=== PATIENT | female | born 1995 | race Caucasian/White ===

== ENCOUNTER 2019-05-17 09:14 | Emergency (ER) | payer BC ==
[2019-05-17 09:24] VITALS: BP 136/73
--- NOTE | 2019-05-17 09:36 | ER Document Report ---
HPI - HPI Time Seen by Provider: 05/17/19 09:32 Pain Level: Denies Notes: Patient is a 23-year-old female no significant past medical history presents complaining of noticing drainage and crusting to her right eye early this morning. Patient states that she cleaned that off and back to bed and noticed the left eye was starting to act up as well. Patient states that she is exposed to an illness with her daughter in the household. She does not wear contact lenses. She is otherwise able to eat and drink without difficulty. She is urinating normally. Denies drug allergies. No other concerns or complaints. Denies any headache, fever, neck pain, changes in vi hugh/speech/mentation/hearing, URI, sore throat, chest pain, palpitations, syncope, cough, shortness of breath, wheeze, dyspnea, abdominal pain, nausea/vomiting/diarrhea, urinary retention, dysuria, hematuria, or rash. - ROS Systems Reviewed and Negative: Yes All other systems reviewed and negative Past Medical History - Social History Smoking Status: Former Smoker Family History: Reviewed & Not Pertinent Patient has suicidal ideation: No Patient has homicidal ideation: No Past Surgical History: Reports: Hx Section - x1, Hx Tonsillectomy Vertical Provider Document - CONSTITUTIONAL Agree With Documented VS: Yes Notes: PHYSICAL EXAMINATION: GENERAL: Well-appearing, well-nourished and in no acute distress. A&Ox4 HEAD: Atraumatic, normocephalic. EYES: Pupils equal round and reactive to light, extraocular movements intact, sclera anicteric, conjunctiva minimal injection with scant crusting/discharge noted b/l. Non-tender to palp of the globe and eye itself. No surrounding erythema or swelling noted. Visual acuity 20/20 b/l and in each eye (performed by myself at bedside with my own eye chart). ENT: Nares patent and without discharge. oropharynx clear without exudates. No tonsilar hypertrophy or erythema. Moist mucous membranes. No sinus tenderness. Uvula midline. No palatine shift. No airway compromise. No drooling or hoarseness. NECK: Normal range of motion, supple without lymphadenopathy. No rigidity/meningismus. LUNGS: Breath sounds clear to auscultation bilaterally and equal. No wheezes rales or rhonchi. HEART: Regular rate and rhythm without murmurs, rubs, gallops. Extremities: No cyanosis, clubbing, or edema b/l. Peripheral pulses 2+. Capillary refill less than 3 seconds. NEUROLOGICAL: Cranial nerves grossly intact. Normal speech, normal gait. PSYCH: Normal mood, normal affect. SKIN: Warm, Dry, normal turgor, no rashes or lesions noted. Course - Re-evaluation Re-evalutation: 05/17/19 09:38 Patient is an afebrile, well-hydrated, 23-year-old female who presents to the emergency department with conjunctivitis to her left eye > Rt. Vitals are acceptable without significant tachycardia, tachypnea, or hypoxia. PE is otherwise unremarkable. Patient is nontoxic-appearing and is able to tolerate p.o. without difficulty. No labs or imaging warranted. Low suspicion for any retained corneal or lid foreign body, deep space infection including orbital cellulitis/abscess, acute glaucoma, penetrating globe injury, retinal detachment, meningitis, sepsis, fracture, compartment syndrome. I will send home with a prescription for Polytrim to use as directed. Conservative measures otherwise for symptoms with proper handwashing. Recheck with your PCM in 3-5 days. Consider follow-up with ophthalmology. Return to the ED with any worsening/concerning symptoms otherwise as reviewed in discharge. Patient is in agreement. - Vital Signs Vital signs: Temp Pulse Resp BP Pulse Ox 98.5 F 71 18 136/73 H 100 05/17/19 09:22 05/17/19 09:22 05/17/19 09:22 05/17/19 09:22 05/17/19 09:22 Discharge - Discharge Clinical Impression: Bilateral conjunctivitis Qualifiers: Conjunctivitis type: unspecified Qualified Code(s): H10.9 - Unspecified conjunctivitis Condition: Stable Disposition: HOME, SELF-CARE Instructions: Conjunctivitis ([facility]) Additional Instructions: Keep eyes clean Avoid scratching/touching eyes Wash hands regularly Use eye drops as directed Maintain adequate fluid intake tylenol/ibuprofen as needed over the counter cold medication as needed for symptoms F/u: with your PCM in 3-5 days for a recheck Consider consult with Ophthalmology for ongoing/worsening symptoms Return to the ED with any worsening symptoms and/or development of fever, headache, changes in vision, eye pain, worsening eye redness, redness around the eyes, purulent discharge, sore throat, facial swelling, neck pain/stiffness, chest pain, palpitations, syncope, shortness of breath, trouble breathing, abdominal pain, n/v/d, blood in stool/urine, dysuria, or other worsening symptoms that are concerning to you. Prescriptions: Polymyxin B Sulf/Trimethoprim [Polytrim Eye Drops] 1 drop OD Q3H #10 ml Forms: Elevated Blood Pressure Referrals: CAPO MOORE MD [ACTIVE STAFF] - Follow up as needed
== END 2019-05-17 09:36 | disposition home or self-care (01) ==
LOC: ER 09:14
DX: H10.9 Unspecified conjunctivitis (principal); H57.11 Ocular pain, right eye; Z87.891 Personal history of nicotine dependence
CPT/HCPCS: 99282

== ENCOUNTER 2019-05-18 23:49 | Emergency (ER) | payer BC ==
[2019-05-19 01:18] LABS: APPEARANCE,URINE SLIGHTLY-CLOUDY; BILIRUBIN,URINE NEGATIVE (NEGATIVE); COLOR,URINE YELLOW; GLUCOSE, URINE NEGATIVE (NEGATIVE); KETONES,URINE NEGATIVE (NEGATIVE); LEUKOCYTE ESTERASE,URINE TRACE (NEGATIVE); NITRITE,URINE NEGATIVE (NEGATIVE); PROTEIN,URINE NEGATIVE (NEGATIVE); URINE SPECIFIC GRAVITY 1.014; UROBILINOGEN,URINE NEGATIVE mg/dL (<2.0)
[2019-05-19 02:29] LABS: ABSOLUTE EOSINOPHILS # (AUTO) 0.1 10^3/uL (0.0-0.6); ABSOLUTE LYMPHOCYTES (AUTO) 2.2 10^3/uL (0.5-4.7); ABSOLUTE MONOCYTES (AUTO) 0.5 10^3/uL (0.1-1.4); ABSOLUTE NEUT (AUTO) 6.8 10^3/uL (1.7-8.2); BASOPHILS % (AUTO) 0.4 % (0-2); EOSINOPHILS % (AUTO) 0.8 % (0-6); HEMATOCRIT 38.1 % (36.0-47.0); HEMOGLOBIN 13.2 g/dL (12.0-15.5); LYMPHOCYTES % (AUTO) 22.9 % (13-45); MEAN CORPUSCULAR HEMOGLOBIN 31.1 pg (27.0-33.4); MEAN CORPUSCULAR HGB CONC 34.5 g/dL (32.0-36.0); MEAN CORPUSCULAR VOLUME 90 fl (80-97); PLATELET COUNT 201 10^3/uL (150-450); RED BLOOD COUNT 4.23 10^6/uL (3.72-5.28); RED CELL DISTRIBUTION WIDTH 12.5 % (11.5-14.0); SEGMENTED NEUTROPHILS % (AUTO) 70.9 % (42-78); TOTAL CELLS COUNTED % (AUTO) 100 %; WHITE BLOOD COUNT 9.6 10^3/uL (4.0-10.5)
--- NOTE | 2019-05-19 03:06 | ER Document Report ---
ED GI/ - General Chief Complaint: OB Problem (<20wks) Stated Complaint: VAGINAL BLEEDING Time Seen by Provider: 05/19/19 02:21 Notes: Patient is a 23-year-old female that comes to the emergency department for chief complaint of abdominal cramping for the past 3 days and today she began spotting intermittently. She is G4, P1 at 10 weeks gestation by first trimester ultrasound. She denies any current complaints, she denies vomiting, fever, trauma, dysuria, vaginal discharge otherwise. She has had a and tonsillectomy, takes vitamins but no daily medications, denies smoking, alcohol, recreational drugs. TRAVEL OUTSIDE OF THE [place] IN LAST 30 DAYS: No - Related Data Allergies/Adverse Reactions: No Known Allergies Allergy (Unverified 05/17/19 09:24) Home Medications: vitamins Past Medical History - General Information source: Patient Last Menstrual Period: 03/01/2019 - Social History Smoking Status: Never Smoker Frequency of alcohol use: None Drug Abuse: None Lives with: Family Family History: Reviewed & Not Pertinent Patient has suicidal ideation: No Patient has homicidal ideation: No Past Surgical History: Reports: Hx Section - x1, Hx Tonsillectomy - Immunizations Immunizations up to date: Yes Hx Diphtheria, Pertussis, Tetanus Vaccination: Yes Review of Systems - Review of Systems Constitutional: No symptoms reported EENT: No symptoms reported Cardiovascular: No symptoms reported Respiratory: No symptoms reported Gastrointestinal: See HPI Genitourinary: No symptoms reported Female Genitourinary: See HPI Musculoskeletal: No symptoms reported Skin: No symptoms reported Hematologic/Lymphatic: No symptoms reported Neurological/Psychological: No symptoms reported Physical Exam - Vital signs Vitals: Temp Pulse Resp BP Pulse Ox 98.5 F 83 16 112/71 100 05/18/19 23:54 05/18/19 23:54 05/18/19 23:54 05/18/19 23:54 05/18/19 23:54 - Notes Notes: GENERAL: Alert, interacts well. No acute distress. HEAD: Normocephalic, atraumatic. EYES: Pupils equal, round, and reactive to light. Extraocular movements intact. ENT: Oral mucosa moist, tongue midline. Oropharynx unremarkable. Airway patent. LUNGS: Clear to auscultation bilaterally, no wheezes, rales, or rhonchi. No respiratory distress. HEART: Regular rate and rhythm. No murmur ABDOMEN: Soft, non-tender. Non-distended. EXTREMITIES: Moves all 4 extremities spontaneously. No edema, normal radial and dorsalis pedis pulses bilaterally. No cyanosis. BACK: no cervical, thoracic, lumbar midline tenderness. No saddle anesthesia, normal distal neurovascular exam. Moves all extremities in full range of motion. NEUROLOGICAL: Alert and oriented x3. Normal speech. Cranial nerves II through XII grossly intact. PSYCH: Normal affect, normal mood. SKIN: Warm, dry, normal turgor. No rashes or lesions noted. Course - Re-evaluation Re-evalutation: Patient has a nontender abdomen on exam. Vital signs unremarkable. She is alert and well-appearing. CBC unremarkable, hCG appropriately elevated, urinalysis unremarkable. RhoGam is not indicated. Ultrasound showing intrauterine with detected heartbeat, also shows small subchorionic hemorrhage. No other concerning findings. I suspect the subchorionic hemorrhage is the cause of patient's symptoms. Discussed results and findings with patient in detail. Provided with work release, nausea medication on request, discussed follow-up and return precautions in detail. She states understanding and agreement. Stable at time of discharge. - Vital Signs Vital signs: Temp Pulse Resp BP Pulse Ox 98.1 F 72 16 112/71 100 05/19/19 04:31 05/19/19 04:31 05/19/19 04:31 05/19/19 04:31 05/19/19 04:31 - Laboratory Result Diagrams: 05/19/19 01:15 Laboratory results interpreted by me: 05/19/19 05/19/19 00:35 01:15 Beta HCG, Quant 72520.00 H Ur Leukocyte Esterase TRACE H Discharge - Discharge Clinical Impression: Pelvic cramping, Vaginal bleeding affecting early Condition: Stable Disposition: HOME, SELF-CARE Additional Instructions: Your test shows a living in the uterus at 10 weeks and 2 days. There is a small subchorionic bleed as we discussed, take the nausea medication if needed, I recommend pelvic rest (avoid lifting, intense exercise, sexual intercourse, etc. until cleared by [employer] [employer]). Return if you worsen including severe worsening pain, heavy bleeding, dizziness, passing out, fever, or any other concerning symptoms Prescriptions: Metoclopramide HCl [Reglan] 5 mg PO ASDIR PRN #30 tablet PRN Reason: Forms: Return to Work
--- NOTE | 2019-05-19 03:57 | RADIOLOGY REPORT (SQ) ---
US PELVIS EXAM DATE: 05/19/2019 12:40 AM GASTROENTEROLOGY PHYSICIAN HISTORY: Early . Pelvic pain. COMPARISON: None. TECHNIQUE: Grayscale, color Doppler, and spectral Doppler ultrasound images of the pelvis were obtained. FINDINGS: There is an intrauterine gestational sac with a yolk sac and pole visualized. The crown-rump length measures 3.33 cm corresponding to 10 weeks 2 days of . The heart rate is 163 bpm. The cervix is 3.3 cm in length. There is an adjacent 1.9 cm subchorionic hematoma. The right ovary is not seen. The left ovary is normal in size and contain normal color Doppler blood flow. No pelvic free fluid. IMPRESSION: 1. Single live IUP with estimated gestational age 10 weeks 2 days. 2. Small adjacent subchorionic hemorrhage; attention on follow-up imaging is suggested.
[2019-05-19 04:32] VITALS: BP 112/71
== END 2019-05-19 04:32 | disposition home or self-care (01) ==
LOC: ER 23:49
DX: O20.9 Hemorrhage in early pregnancy, unspecified (principal); R10.2 Pelvic and perineal pain; Z3A.10 10 weeks gestation of pregnancy
CPT/HCPCS: 36415; 76801; 81001; 84702; 85025; 86900; 86901; 93976; 99284